=== PATIENT | male | born 1985 | race American Indian/Alaskan Native ===

== ENCOUNTER 2018-06-09 07:24 | Emergency (ER) | payer SELFPAY ==
[2018-06-09] MEDS ORDERED: BICILLIN L-A IM ONE (09:02)
[2018-06-09] MEDS ORDERED: NACL 0.9% 1000 ML 1,000 ML IV ONE (09:05)
--- NOTE | 2018-06-09 09:05 | Emergency Department Report ---
ED General Adult HPI - General Chief complaint: Medical Clearance Stated complaint: DEHYDRATION Time Seen by Provider: 06/09/18 08:56 Source: patient Mode of arrival: Ambulatory Limitations: No Limitations - History of Present Illness Initial comments: Patient is a 33-year-old male with past history of HIV who is here to be treated for syphilis. Patient states he was at an outside clinic and was called and told that he had a positive RPR. Patient had a small ulcerated nontender lesion in the left groin approximately a month ago which is now healed. Patient denies any penile discharge fevers chills nausea vomiting cough cold or congestion at this time. Patient does state that this morning when brushing his teeth he had some bleeding to the gums which the patient states this happened numerous times in the past. Patient denies sore throat neck stiffness painful swallowing. - Related Data Allergies Allergy/AdvReac Type Severity Reaction Status Date / Time No Known Allergies Allergy Unverified 06/09/18 07:41 ED Review of Systems ROS: Stated complaint: DEHYDRATION Other details as noted in HPI Comment: All other systems reviewed and negative ED Past Medical Hx - Past Medical History Previous Medical History?: Yes Hx HIV: Yes Additional medical history: STD - Surgical History Past Surgical History?: No - Social History Smoking Status: Current Every Day Smoker Substance Use Type: None ED Physical Exam - General Limitations: No Limitations General appearance: alert, in no apparent distress - Head Head exam: Present: atraumatic, normocephalic - Eye Eye exam: Present: normal appearance - ENT ENT exam: Present: normal orophraynx, mucous membranes moist, other (patient's gums diffusely show gingivitis and some mild irritation. No lesions present.) - Neck Neck exam: Present: normal inspection - Respiratory Respiratory exam: Present: normal lung sounds bilaterally. Absent: respiratory distress - Cardiovascular Cardiovascular Exam: Present: regular rate, normal rhythm. Absent: systolic murmur, diastolic murmur, rubs, gallop - GI/Abdominal GI/Abdominal exam: Present: soft, normal bowel sounds - Rectal Rectal exam: Present: deferred - exam: Present: normal inspection - Extremities Exam Extremities exam: Present: normal inspection - Back Exam Back exam: Present: normal inspection - Neurological Exam Neurological exam: Present: alert, oriented X3 - Psychiatric Psychiatric exam: Present: normal affect, normal mood - Skin Skin exam: Present: warm, dry, intact, normal color. Absent: rash ED Course Vital Signs 06/09/18 07:37 Temperature 100.1 F H Pulse Rate 111 H Respiratory 16 Rate Blood Pressure 160/95 O2 Sat by Pulse 98 Oximetry - Reevaluation(s) Reevaluation #1: 06/09/18 10:35 The nurse for the patient alerted me that the patient was somewhat agitated refusing medications. I did speak with the patient [id number] patient states that he was not communicated with regarding the medication he will be given. Patient has refused Bicillin and IV fluids. I try to explain to the patient that he was just receiving the medications that we are T's spoken about. On initial conversation I explained to the patient then Bicillin was the appropriate treatment that he would need a shot today as well as in the week. Patient voiced understanding however when the nurse tried to administer the medication patient was refusing. Patient states that he would like to leave. He is alert and oriented 3. Patient allowed to leave AGAINST MEDICAL ADVICE. ED Medical Decision Making - Lab Data Result diagrams: 06/09/18 09:12 06/09/18 09:18 Critical care attestation.: If time is entered above; I have spent that time in minutes in the direct care of this critically ill patient, excluding procedure time. ED Disposition Clinical Impression: Syphilis Disposition: DC-07 LEFT AGAINST MED ADVICE Is pt being admited?: No Does the pt Need Aspirin: No Condition: Stable Referrals: BEBA VELASQUEZ MD [Primary Care Provider] - 3-5 Days
[2018-06-09 09:29] LABS: Basophils # (Auto) 0.1 K/mm3 (0.0-0.1); Basophils % (Auto) 0.9 % (0.0-1.8); Eosinophils % (Auto) 0.7 % (0.0-4.3); Hematocrit 39.5 % (35.5-45.6); Hemoglobin 13.2 gm/dl (11.8-15.2); Lymphocytes % (Auto) 36.8 % (13.4-35.0); Mean Corpuscular HGB Conc 34 % (32-34); Mean Corpuscular Volume 86 fl (84-94); Monocytes # (Auto) 0.8 K/mm3 (0.0-0.8); Monocytes % (Auto) 15.3 % (0.0-7.3); Platelet Count 199 K/mm3 (140-440); Red Cell Distribution Width 13.6 % (13.2-15.2)
[2018-06-09 09:48] LABS: BUN/Creatinine Ratio 15; Blood Urea Nitrogen 17 mg/dL (9-20); Calcium 8.2 mg/dL (8.4-10.2); Hemolysis Index 10
[2018-06-09 10:44] VITALS: BP 160/91
== END 2018-06-09 10:45 | disposition left against medical advice (07) ==
LOC: ED 07:24
DX: A53.9 Syphilis, unspecified (principal); F17.200 Nicotine dependence, unspecified, uncomplicated
CPT/HCPCS: 36415; 80048; 85025; 99283; J0561; J7030

== ENCOUNTER 2020-02-17 10:46 | Emergency (ER) | payer SELFPAY ==
[2020-02-17 11:23] VITALS: BP 117/81
[2020-02-17] MEDS ORDERED: KETOROLAC 30 MG/1 ML INJ IM ONE (12:40)
[2020-02-17] MEDS ORDERED: KETOROLAC 30 MG/1 ML INJ IV ONE (12:54)
[2020-02-17] MEDS ORDERED: SODIUM CHLORIDE 0.9% 1000 ML 1,000 ML IV ONE (12:54)
[2020-02-17 13:05] LABS: Bilirubin,Urine NEG (Negative); Blood,Urine LG (Negative); Color,Urine Yellow (Yellow)
[2020-02-17 13:06] LABS: Protein,Urine >500 mg/dL (Negative); RBC,Urine > 182.0 /HPF (0.0-6.0); WBC,Urine > 182.0 /HPF (0.0-6.0)
[2020-02-17] MEDS ORDERED: AZITHROMYCIN 250 MG TAB PO ONE (13:20)
--- NOTE | 2020-02-17 13:36 | Emergency Department Report ---
ED Male HPI - General Chief complaint: Urogenital-Male Stated complaint: URINATION PROBLEM Time Seen by Provider: 02/17/20 12:40 Source: patient Mode of arrival: Ambulatory Limitations: No Limitations - History of Present Illness Initial comments: This is a 34-year-old male nontoxic, well nourished in appearance, no acute signs of distress presents to the ED with c/o of dysuria, hematuria, left flank pain, polyuria, and urinary frequency x2 weeks. Patient denies any penile discharge, bleeding, ulcers or lesions. Patient denies any pelvic or abdominal pain. Patient denies any nausea, vomiting, chest pain, shortness of breathe, fever, chills, headache, back pain, numbness, tingling, stiff neck. Patient denies any other urinary symptoms. Patient denies any allergies or PMH. Patient just he just finished antibiotics for PNA. Denies any cough or URI symptoms. MD Complaint: dysuria, other (hematuria with flank pain) -: week(s) Radiation: none Severity: mild Severity scale (0 -10): 3 Quality: burning Consistency: constant Improves with: none Worsens with: urination blood in urine, dysuria. denies: discharge, swelling, mass, rash, urinary retention, fever, nausea/vomiting, incontinence - Related Data Previous Rx's Medication Instructions Recorded Last Taken Type Sulfamethoxazole/Trimethoprim 1 each PO BID #20 tablet 02/17/20 Unknown Rx [Bactrim DS TAB] Allergies Allergy/AdvReac Type Severity Reaction Status Date / Time No Known Allergies Allergy Unverified 06/09/18 07:41 ED Review of Systems ROS: Stated complaint: URINATION PROBLEM Other details as noted in HPI Constitutional: denies: chills, fever Eyes: denies: eye pain, eye discharge, vision change ENT: denies: ear pain, throat pain Respiratory: denies: cough, shortness of breath, wheezing Cardiovascular: denies: chest pain, palpitations Endocrine: no symptoms reported Gastrointestinal: denies: abdominal pain, nausea, diarrhea Genitourinary: urgency, dysuria, frequency, hematuria. denies: discharge, testi cular pain, testicular mass Musculoskeletal: denies: back pain, joint swelling, arthralgia Skin: denies: rash, lesions Neurological: denies: headache, weakness, paresthesias Psychiatric: denies: anxiety, depression Hematological/Lymphatic: denies: easy bleeding, easy bruising ED Past Medical Hx - Past Medical History Hx HIV: Yes Additional medical history: STD - Surgical History Past Surgical History?: No - Social History Smoking Status: Current Some Day Smoker Substance Use Type: None - Medications Home Medications: Home Medications Medication Instructions Recorded Confirmed Last Taken Type Sulfamethoxazole/Trimethoprim 1 each PO BID #20 tablet 02/17/20 Unknown Rx [Bactrim DS TAB] ED Physical Exam - General Limitations: No Limitations General appearance: alert, in no apparent distress - Head Head exam: Present: atraumatic, normocephalic - Eye Eye exam: Present: normal appearance - Neck Neck exam: Present: normal inspection, full ROM. Absent: tenderness, meningismus, lymphadenopathy - Respiratory Respiratory exam: Present: normal lung sounds bilaterally. Absent: respiratory distress, wheezes, rales, rhonchi, stridor, chest wall tenderness, accessory mu scle use, decreased breath sounds, prolonged expiratory - Cardiovascular Cardiovascular Exam: Present: regular rate, normal rhythm, normal heart sounds. Absent: bradycardia, tachycardia, irregular rhythm, systolic murmur, diastolic murmur, rubs, gallop - GI/Abdominal GI/Abdominal exam: Present: soft, normal bowel sounds. Absent: distended, tenderness, guarding, rebound, rigid, diminished bowel sounds - Extremities Exam Extremities exam: Present: normal inspection, full ROM - Back Exam Back exam: Present: normal inspection, full ROM. Absent: tenderness, CVA tenderness (R), CVA tenderness (L), muscle spasm, paraspinal tenderness, verte bral tenderness, rash noted - Neurological Exam Neurological exam: Present: alert, oriented X3, normal gait - Psychiatric Psychiatric exam: Present: normal affect, normal mood - Skin Skin exam: Present: warm, dry, intact, normal color. Absent: rash ED Course Vital Signs 02/17/20 11:22 Temperature 98.2 F Pulse Rate 64 Respiratory 16 Rate Blood Pressure 117/81 O2 Sat by Pulse 100 Oximetry - Reevaluation(s) Reevaluation #1: 02/17/20 13:38 Patient is speaking in full sentences with no signs of distress noted. ED Medical Decision Making - Lab Data Lab Results 02/17/20 Range/Units Unknown Urine Color Yellow (Yellow) Urine Turbidity Cloudy (Clear) Urine pH 7.0 (5.0-7.0) Ur Specific [place] 1.019 (1.003-1.030) Urine Protein >500 (Negative) mg/dL Urine Glucose (UA) Neg (Negative) mg/dL Urine Ketones Neg (Negative) mg/dL Urine Blood Lg (Negative) Urine Nitrite Neg (Negative) Urine Bilirubin Neg (Negative) Urine Urobilinogen 2.0 (<2.0) mg/dL Ur Leukocyte Esterase Lg (Negative) Urine WBC (Auto) > 182.0 H (0.0-6.0) /HPF Urine RBC (Auto) > 182.0 (0.0-6.0) /HPF - Radiology Data Referring Physician: CHELSEA WATSON Patient Name: BROCK SPIVEY Date of : 1985 Sex: Male Report Date: 2020-02-17 Report Status: [place] [address] Cat Scan Report Signed Patient: BROCK SPIVEY MR#: [id number] : 1985 Acct:[id number] Age/Sex: 34 / M ADM Date: 02/17/20 Loc: ED Attending Dr: Ordering Physician: CHELSEA WATSON NP Date of Service: 02/17/20 Procedure(s): CT abdomen pelvis wo con Accession Number(s): [id number] cc: CHELSEA WATSON NP CT ABDOMEN AND PELVIS WITHOUT CONTRAST INDICATION / CLINICAL INFORMATION: flank pain with hematuria. TECHNIQUE: Axial CT images were obtained through the abdomen and pelvis without IV contrast. All CT scans at this location are performed using CT dose reduction for ALARA by means of automated exposure control. COMPARISON: None available. FINDINGS: LOWER CHEST: There are diffuse patchy parenchymal groundglass opacities throughout the visualized lung bases. LIVER: No significant abnormality. GALLBLADDER: No significant abnormality. PANCREAS: No significant abnormality. SPLEEN: No significant abnormality. ADRENALS: No significant abnormality. KIDNEYS / URETERS: No significant abnormality. URINARY BLADDER: There is circumferential urinary bladder wall thickening with adjacent inflammatory change. REPRODUCTIVE ORGANS: No significant abnormality. STOMACH / SMALL BOWEL: No significant abnormality. COLON: No significant abnormality. APPENDIX: No significant abnormality. PERITONEUM: No free fluid. No free air. No fluid collection. LYMPH NODES: No significant adenopathy. AORTA / ARTERIES: No significant abnormality. IVC / VEINS: No significant abnormality. SKELETAL SYSTEM: No significant abnormality. ADDITIONAL FINDINGS: None. IMPRESSION: 1. Circumferential urinary bladder wall thickening and inflammation is concerning for cystitis. Correlation with urinalysis is recommended. 2. Diffuse patchy parenchymal groundglass opacities are seen throughout the lung bases. Findings are likely chronic, but clinical correlation is recommended to exclude an infectious process. Signer Name: Joshua White MD Signed: 02/17/2020 1:55 PM Workstation Name: [id number] Transcribed By: SS Dictated By: JOSHUA WHITE Electronically Authenticated By: JOSHUA WHIET Signed Date/Time: 02/17/20 1355 DD/ 1344 TD/TT: Referring Physician: CHELSEA WATSON Patient Name: BROCK SPIVEY Date of : 1985 Sex: Male Report Date: 2020-02-17 Report Status: [place] [address] XRay Report Signed Patient: BROCK SPIVEY MR#: [id number] : 1985 Acct:[id number] Age/Sex: 34 / M ADM Date: 02/17/20 Loc: ED Attending Dr: Ordering Physician: CHELSEA WATSON NP Date of Service: 02/17/20 Procedure(s): XR chest routine 2V Accession Number(s): [id number] cc: CHELSEA WATSON NP Fluoro Time In Minutes: CHEST 2 VIEWS INDICATION / CLINICAL INFORMATION: Possible pneumonia on CT abdomen and pelvis performed earlier today. COMPARISON: CT abdomen and pelvis without contrast from earlier today. FINDINGS: SUPPORT DEVICES: None. HEART / MEDIASTINUM: No significant abnormality. LUNGS / PLEURA: The lungs are clear. No significant pleural effusion. No pneumothorax. ADDITIONAL FINDINGS: No significant additional findings. IMPRESSION: No acute abnormality of the chest. The previously described abnormal appearance of the lung bases likely represents a chronic infectious/inflammatory process. Please correlate with the clinical findings. Signer Name: Malick Luna MD Signed: 02/17/2020 2:52 PM Workstation Name: [id number] Transcribed By: EDUARDA Dictated By: Malick Luna MD Electronically Authenticated By: Malick Luna MD Signed Date/Time: 02/17/201451 DD/ 49 TD/TT: - Medical Decision Making This is a 34-year-old male that presents with UTI with possible STD. Patient is stable and was examined by me. UA obtained. Patient does not have any CVA tenderness. No signs or symptoms of pyelonephritis. Patient received Rocephin and Azith in the ED. PAtient is notfieid of the CXR and CT abd with no questions noted by the patient. Gonorrhea chlamydia pending and patient was instructed to return in 3 to 5 days for results. Patient is discharged with Bactrim. Patient was instructed to Follow-up with a primary care doctor in 3-5 days or if symptoms worsen and continue return to emergency room as soon as possible. At time of discharge, the patient does not seem toxic or ill in appearance. No acute signs of distress noted. Patient agrees to discharge treatment plan of care. No further questions noted by the patient. Critical care attestation.: If time is entered above; I have spent that time in minutes in the direct care of this critically ill patient, excluding procedure time. ED Disposition Clinical Impression: Possible exposure to STD UTI (urinary tract infection) Qualifiers: Urinary tract infection type: acute cystitis Hematuria presence: with hematuria Qualified Code(s): N30.01 - Acute cystitis with hematuria Disposition: TO HOME OR SELFCARE Is pt being admited?: No Does the pt Need Aspirin: No Condition: Stable Instructions: Safe Sex (ED), Urinary Tract Infection in Men (ED) Additional Instructions: Follow-up with a primary care doctor in 3-5 days or if symptoms worsen and continue return to emergency room as soon as possible. Return in 3 to 5 days for gonorrhea and Chlamydia results. Prescriptions: Sulfamethoxazole/Trimethoprim [Bactrim DS TAB] 1 each PO BID #20 tablet Referrals: SHILOH MONROY MD [Primary Care Provider] - 3-5 Days ROSANA RIVERA MD [Staff Physician] - 3-5 Days Forms: Work/School Release Form(ED)
--- NOTE | 2020-02-17 14:00 | Cat Scan Report ---
CT ABDOMEN AND PELVIS WITHOUT CONTRAST INDICATION / CLINICAL INFORMATION: flank pain with hematuria. TECHNIQUE: Axial CT images were obtained through the abdomen and pelvis without IV contrast. All CT scans at [facility] location are performed using CT dose reduction for ALARA by means of automated exposure control. COMPARISON: None available. FINDINGS: LOWER CHEST: There are diffuse patchy parenchymal groundglass opacities throughout the visualized marium g bases. LIVER: No significant abnormality. GALLBLADDER: No significant abnormality. PANCREAS: No significant abnormality. SPLEEN: No significant abnormality. ADRENALS: No significant abnormality. KIDNEYS / URETERS: No significant abnormality. URINARY BLADDER: There is circumferential urinary bladder wall thickening with adjacent inflammatory change. REPRODUCTIVE ORGANS: No significant abnormality. STOMACH / SMALL BOWEL: No significant abnormality. COLON: No significant abnormality. APPENDIX: No significant abnormality. PERITONEUM: No free fluid. No free air. No fluid collection. LYMPH NODES: No significant adenopathy. AORTA / ARTERIES: No significant abnormality. IVC / VEINS: No significant abnormality. SKELETAL SYSTEM: No significant abnormality. ADDITIONAL FINDINGS: None. IMPRESSION: 1. Circumferential urinary bladder wall thickening and inflammation is concerning for cystitis. Corre lation with urinalysis is recommended. 2. Diffuse patchy parenchymal groundglass opacities are seen throughout the lung bases. Findings are likely chronic, but clinical correlation is recommended to exclude an infectious process. Signer Name: Parag White MD Signed: 02/17/2020 1:55 PM Workstation Name: [id number]
--- NOTE | 2020-02-17 14:56 | XRay Report ---
CHEST 2 VIEWS INDICATION / CLINICAL INFORMATION: Possible pneumonia on CT abdomen and pelvis performed earlier today. COMPARISON: CT abdomen and pelvis without contrast from earlier today. FINDINGS: SUPPORT DEVICES: None. HEART / MEDIASTINUM: No significant abnormality. LUNGS / PLEURA: The lungs are clear. No significant pleural effusion. No pneumothorax. ADDITIONAL FINDINGS: No significant additional findings. IMPRESSION: No acute abnormality of the chest. The previously described abnormal appearance of the lung bases lik johan represents a chronic infectious/inflammatory process. Please correlate with the clinical findings . Signer Name: Malick Luna MD Signed: 02/17/2020 2:52 PM Workstation Name: [id number]
== END 2020-02-17 15:29 | disposition home or self-care (01) ==
LOC: ED 10:46
DX: N39.0 Urinary tract infection, site not specified (principal); F17.200 Nicotine dependence, unspecified, uncomplicated; Z79.899 Other long term (current) drug therapy; Z21 Asymptomatic human immunodeficiency virus [HIV] infection status; Z20.2 Contact with and (suspected) exposure to infections with a predominantly sexual mode of transmission
CPT/HCPCS: 71046; 74176; 81001; 96361; 96365; 96375; 99284; J0696; J1885; J7030

== ENCOUNTER 2020-04-09 18:58 | Emergency (ER) | payer SELFPAY ==
[2020-04-09 19:42] VITALS: BP 125/85
--- NOTE | 2020-04-09 19:58 | Event Note ---
ED Screening Note ED Screening Note: Patient is a 35-year-old male presents emergency room complaints of nausea and 1 episode of vomiting He denies any diarrhea, he states he had a normal bowel movement earlier today denies any dysuria, dark urine, penile discharge He states that his "stomach feels weird" but denies any abdominal pain He states he has a past medical history of HIV, he states he had a preliminary HIV test which was positive, he has not taken any antivirals in 3 months, he has not followed up with infectious disease, he has not had a repeat HIV test This initial assessment/diagnostic orders/clinical plan/treatment(s) is/are subject to change based on patients health status, clinical progression and re- assessment by fellow clinical providers in the ED. Further treatment and workup at subsequent clinical providers discretion. Patient/guardian urged not to elope from the ED as their condition may be serious if not clinically assessed and managed. Initial orders include: labs, ua
[2020-04-09 20:19] LABS: Hematocrit 44.5 % (35.5-45.6); Hemoglobin 14.7 gm/dl (11.8-15.2); Mean Corpuscular HGB Conc 33 % (32-34); Mean Corpuscular Volume 85 fl (84-94); Platelet Count 264 K/mm3 (140-440); Red Blood Count 5.26 M/mm3 (3.65-5.03); Red Cell Distribution Width 15.6 % (13.2-15.2)
[2020-04-09 20:21] LABS: Basophils % (Auto) 0.9 % (0.0-1.8); Eosinophils % (Auto) 0.7 % (0.0-4.3); Lymphocytes # (Auto) 1.2 K/mm3 (1.2-5.4); Lymphocytes % (Auto) 23.4 % (13.4-35.0); Monocytes # (Auto) 0.4 K/mm3 (0.0-0.8); Monocytes % (Auto) 7.6 % (0.0-7.3)
[2020-04-09 20:41] LABS: Alanine Aminotransferase 19 units/L (7-56); Albumin 4.3 g/dL (3.9-5); BUN/Creatinine Ratio 12; Blood Urea Nitrogen 16 mg/dL (9-20); Calcium 9.2 mg/dL (8.4-10.2); Hemolysis Index 13
== END 2020-04-09 20:00 | disposition left against medical advice (07) ==
LOC: ED 18:58
DX: E86.0 Dehydration (principal); Z53.21 Procedure and treatment not carried out due to patient leaving prior to being seen by health care provider
CPT/HCPCS: 36415; 80053; 83690; 85025